=== PATIENT | female | born 1960 | race African-American/Black ===

== ENCOUNTER → 2016-06-03 | Outpatient (CLI) | payer BC ==
--- NOTE | 2016-06-03 11:18 | KCIC ---
PROCEDURE Pelvic sonogram. HISTORY Postcoital bleeding. TECHNIQUE Trans abdominal and transvaginal sonographic imaging of the pelvis was performed. COMPARISON None. FINDINGS The uterus measures 7.8 x 3.6 x 4.9 cm. The endometrial stripe is thickened for the postmenopausal status of the patient, measuring 1.2 cm. There are small hypoechoic regions adjacent to the endometrium measuring 1.0 cm and 0.7 cm. These may be located within the junctional zone. The right ovary measures 2.1 x 1.4 x 1.1 cm. The left ovary measures 3.1 x 3.2 x 2.7 cm and contains possible calcification. There is a small follicle within the right ovary. There is normal blood flow within both ovaries. IMPRESSION 1. Thickened endometrial stripe for the postmenopausal status the patient, measuring 1.2 cm. In the setting of postmenopausal bleeding, endometrial biopsy may be indicated for definitive diagnosis. There are small fluid collections adjacent to the endometrial stripe which appear to be centered within the junctional zone, of uncertain etiology. These are not typical in appearance for fibroids. Follow-up is recommended. 2. Enlarged left ovary containing possible microcalcifications. There is normal ovarian blood flow. No discrete cystic or solid left ovarian lesion is seen on this exam. Follow-up is recommended. Electronically signed by: Yenny Cifuentes (Jun 03, 2016 11:16:35)
== END | disposition home or self-care (01) ==
LOC: KCIC US 10:40
PROVIDERS: ATTEND Family Medicine
DX: N95.0 Postmenopausal bleeding (principal)
CPT/HCPCS: 76830; 76856